=== PATIENT | female | born 2000 | race Caucasian/White ===

== ENCOUNTER 2020-04-19 18:48 | Emergency (ER) | payer OTHER ==
[~2020-04-19] VITALS: Ht 152.4 cm; Wt 59.0 kg
[2020-04-19 19:10] VITALS: BP 113/68
--- NOTE | 2020-04-19 19:10 | NUR ---
PT SITTING IN TENT, RR EVEN AND UNLABORED, NO ACUTE DISTRESS NOTED AT THIS TIME, AWAITING MEDICAL EVALUATION.
--- NOTE | 2020-04-19 19:27 | NUR ---
Dr. Diallo examining patient.
--- NOTE | 2020-04-19 19:30 | NUR ---
PT ASSESSMENT COMPLETED BY DR. CARTER , NO NURSING INTERVENTIONS NEEDED AT THIST TIME.
[2020-04-19 20:11] VITALS: BP 113/68
--- NOTE | 2020-04-19 20:11 | NUR ---
Patient discharged with v/s stable. Written and verbal after care instructions given and explained. Patient verbalized understanding. Ambulatory with steady gait. All questions addressed prior to discharge. Advised to follow up with PMD.
== END 2020-04-19 20:11 | disposition home or self-care (01) ==
LOC: MED 18:48
DX: Z02.89 Encounter for other administrative examinations (principal)
CPT/HCPCS: 99281

== ENCOUNTER 2022-04-07 19:40 | Emergency (ER) | payer OTHER ==
[~2022-04-07] VITALS: Ht 154.9 cm; Wt 72.6 kg
[2022-04-07 20:05] VITALS: BP 111/60
--- NOTE | 2022-04-07 20:10 | NUR ---
TO LOBBY FOLLOWING TRIAGE
[2022-04-07 20:52] LABS: BASOPHILS % (AUTO) 0.4 % (0.0-2.0); EOSINOPHILS # (AUTO) 0.4 K/uL (0-0.4); EOSINOPHILS % (AUTO) 4.2 % (0.0-4.0); HEMATOCRIT 37.8 % (36-48); HEMOGLOBIN 12.6 g/dL (12.0-16.0); LYMPHOCYTES # (AUTO) 2.5 K/uL (2.5-16.5); LYMPHOCYTES % (AUTO) 29.1 % (20.5-51.1); MEAN CORPUSCULAR HEMOGLOBIN 31 pg (27-31); MEAN CORPUSCULAR HGB CONC 33 g/dL (33-37); MEAN CORPUSCULAR VOLUME 92.5 fL (80-94); MONOCYTES # (AUTO) 0.5 K/uL (0.8-1.0); NEUTROPHILS # (AUTO) 5.2 K/uL (1.8-7.7); NEUTROPHILS % (AUTO) 60.3 % (42.2-75.2); PLATELET COUNT (AUTO) 279 K/uL (140-450); RED BLOOD CELL COUNT(AUTO) 4.09 MIL/uL (4.20-5.40); RED CELL DISTRIBUTION WIDTH 13.7 % (11.6-13.7); WHITE BLOOD COUNT (AUTO) 8.6 K/uL (4.8-10.8)
[2022-04-07 21:14] LABS: CARBON DIOXIDE 27.8 mmol/L (21-32); CREATININE 1.1 mg/dL (0.6-1.3); POTASSIUM 3.8 mmol/L (3.5-5.1)
--- NOTE | 2022-04-07 21:44 | NUR ---
PT TAKEN TO BED 5
--- NOTE | 2022-04-07 22:11 | NUR ---
22 YO F BIBS W C/O VAGINAL BLEEDING 3 THREE WEEKAS. pT STATES SHE IS HAVING TO CHANGE HER TAMPON ABOUT EVERY HOUR. PT STATES HER PERIORD ARE USALLY NORMAL AND LAST FOR 3 TO 4 DAYS. PT STATED SHE TOOK PLAN B ON 03/09 AND 03/16. PMH: DENIES NKDA
--- NOTE | 2022-04-07 22:39 | NUR ---
Dr. Byrd examining patient.
[2022-04-07] MEDS ORDERED: MEDR10TA PO (23:24)
[2022-04-07 23:52] VITALS: BP 111/60
--- NOTE | 2022-04-07 23:52 | NUR ---
Patient discharged with v/s stable. Written and verbal after care instructions given and explained. Patient alert, oriented and verbalized understanding of instructions. Ambulatory with steady gait. All questions addressed prior to discharge. ID band removed. Patient advised to follow up with PMD. Rx of PROVERA given. Patient educated on indication of medication including possible reaction and side effects. Opportunity to ask questions provided and answered.
== END 2022-04-07 23:52 | disposition home or self-care (01) ==
LOC: MED 19:40
DX: N93.8 Other specified abnormal uterine and vaginal bleeding (principal); Z79.899 Other long term (current) drug therapy
CPT/HCPCS: 36415; 80048; 81002; 81025; 85025; 96372; 99283; J1050

== ENCOUNTER 2024-01-06 22:06 | Emergency (ER) | payer MEDICAID, OTHER ==
[~2024-01-06] VITALS: Ht 154.9 cm; Wt 77.1 kg
[~2024-01-06 22:06] MED LIST: MEDR10TA PO
[2024-01-06 22:09] VITALS: BP 92/61; PULSE 77; RESP 16; TEMP 97.5; O2SAT 100
[2024-01-06 22:18] VITALS: O2SAT 100
[2024-01-06 22:53] LABS: BASOPHILS % (AUTO) 0.4 % (0.0-2.0); EOSINOPHILS # (AUTO) 0.3 K/uL (0-0.4); EOSINOPHILS % (AUTO) 3.4 % (0.0-4.0); HEMOGLOBIN 12.8 g/dL (12.0-16.0); LYMPHOCYTES # (AUTO) 2.5 K/uL (2.5-16.5); MEAN CORPUSCULAR HEMOGLOBIN 32 pg (27-31); MEAN CORPUSCULAR HGB CONC 35 g/dL (33-37); MEAN CORPUSCULAR VOLUME 92.5 fL (80-94); MONOCYTES # (AUTO) 0.6 K/uL (0.8-1.0); MONOCYTES % (AUTO) 6.5 % (1.7-9.3); NEUTROPHILS # (AUTO) 5.6 K/uL (1.8-7.7); NEUTROPHILS % (AUTO) 61.7 % (42.2-75.2); PLATELET COUNT (AUTO) 317 K/uL (140-450); RED CELL DISTRIBUTION WIDTH 14.2 % (11.6-13.7)
[2024-01-06 22:54] LABS: APPEARANCE,URINE CLEAR (CLEAR); BILIRUBIN,URINE NEGATIVE (NEGATIVE); BLOOD, URINE NEGATIVE (NEGATIVE); COLOR,URINE YELLOW (YELLOW); LEUKOCYTE ESTERASE ,URINE NEGATIVE (NEGATIVE); NITRITE, URINE NEGATIVE (NEGATIVE); PROTEIN,URINE NEGATIVE (NEGATIVE); UGLUCOSE NEGATIVE (NEGATIVE); UROBILINOGEN,URINE 0.2 EU/dL (0.2 - 1)
[2024-01-06 23:03] LABS: ANION GAP 8.3 (8-16); CALCIUM 8.9 mg/dL (8.5-10.1); CREATININE 0.8 mg/dL (0.6-1.3); POTASSIUM 3.3 mmol/L (3.5-5.1)
[2024-01-06 23:07] LABS: ALBUMIN 3.4 g/dL (3.4-5.0); BILIRUBIN,DIRECT 0.1 mg/dL (0.0-0.3); TOTAL BILIRUBIN 0.2 mg/dL (0.0-1.0); TOTAL PROTEIN, SERUM 7.1 g/dL (6.4-8.2)
[2024-01-07] MEDS ORDERED: MAGN400S60 PO (00:22)
[2024-01-07 00:29] VITALS: BP 97/61; PULSE 68; RESP 18; TEMP 97.9; O2SAT 98
== END 2024-01-07 00:29 | disposition home or self-care (01) ==
LOC: MED 22:06
DX: K59.00 Constipation, unspecified (principal); R10.9 Unspecified abdominal pain; Z79.899 Other long term (current) drug therapy
CPT/HCPCS: 36415; 71250; 80048; 80076; 81003; 81025; 85025; 99284